=== PATIENT | male | born 1965 | race Caucasian/White ===

== ENCOUNTER 2022-05-25 21:35 | Observation (INO) | payer MEDICARE ==
[2022-05-25 22:43] LABS: #Eosinphils 0.1 10x3/uL (0.0-0.5); #Monocytes 0.5 10x3/uL (0.0-1.1); #Neutrophils 3.7 10x3/uL (1.5-8.4); %Basophils 0.3 % (0.0-2.0); %Eosinophils 1.2 % (0.0-6.0); %Lymphocytes 27.5 % (18.0-47.0); %Monocytes 7.9 % (0.0-10.0); %Neutrophils 62.9 % (40.0-75.0); Hemoglobin 17.7 g/dL (13.5-17.5); Mean Corpuscular HGB CONC 34.8 g/dL (32.0-36.0); Mean Corpuscular Hemoglobin 31.7 pg (27.0-33.0); Mean Corpuscular Volume 90.9 fl (81.2-95.1); Mean Platelet Volume 9.6 fl (7.4-10.4); Platelet Count 158 10x3/uL (150-450); RBC Distribution Width 12.8 % (11.5-14.5); Red Blood Cell (RBC) Count 5.59 10x6/uL (4.32-5.72); White Blood Cell (WBC) Count 5.8 10x3/uL (3.5-10.5)
[2022-05-25 22:59] LABS: ALT (SGPT) 26 U/L (8-55); AST (SGOT) 19 U/L (5-34); Albumin 4.2 g/dL (3.5-5.0); Alkaline Phosphatase 45 U/L (40-110); Anion Gap 15 mmol/L (10-20); BUN (Urea Nitrogen) 30 mg/dL (8.4-25.7); Bilirubin, Total 0.4 mg/dL (0.2-1.2); Calc. Creatinine Clearance 0 mL/min (70-130); Calcium 10.2 mg/dL (7.8-10.44); Carbon Dioxide 21 mmol/L (22-29); Chloride 112 mmol/L (98-107); Estimated GFR 42; Globulin 2.7 g/dL (2.4-3.5); Glucose 115 mg/dL (70-105); Potassium 3.7 mmol/L (3.5-5.1); Protein, Total 6.9 g/dL (6.0-8.3); Sodium 144 mmol/L (136-145)
[2022-05-26 00:32] LABS: Troponin I 0.055 ng/mL (< 0.028)
[2022-05-26] MEDS ORDERED: Ondansetron ODT 4 MG TAB PO PRN (00:34)
[2022-05-26] MEDS ORDERED: Senokot S 8.6-50 MG TAB PO PRN (00:34)
[2022-05-26] MEDS ORDERED: hydrALAZINE 25 MG TAB PO PRN ×2 (00:35→10:01)
[2022-05-26 00:56] VITALS: BMI 26.5
[2022-05-26] MEDS ORDERED: Tamsulosin HCl 0.4 MG CAP PO SCH ×3 (01:00→21:00)
[2022-05-26] MEDS ORDERED: Apixaban 5 MG TAB PO SCH (01:15)
[2022-05-26] MEDS: Acetaminophen 325 MG TAB PO PRN ×2 (01:20→21:03)
[2022-05-26 02:19] LABS: SARS-CoV-2 NAA Rapid Test Not Detected (NotDetected)
[2022-05-26 03:53] LABS: Anion Gap 17 mmol/L (10-20); BUN (Urea Nitrogen) 32 mg/dL (8.4-25.7); Calc. Creatinine Clearance 57 mL/min (70-130); Calcium 9.8 mg/dL (7.8-10.44); Carbon Dioxide 17 mmol/L (22-29); Cardiac Risk 2.8 (Less than 4.5); Chloride 113 mmol/L (98-107); Cholesterol 106 mg/dl (< 200 Desired); Estimated GFR 46; Glucose 91 mg/dL (70-105); HDL Cholesterol 38 mg/dL (>60 Neg Risk); LDL Cholesterol, Calculated 34 mg/dL; Potassium 4.5 mmol/L (3.5-5.1); Sodium 142 mmol/L (136-145); Triglycerides 171 mg/dL (Less than 150)
[2022-05-26 04:02] LABS: Troponin I 0.081 ng/mL (< 0.028)
[2022-05-26] MEDS ORDERED: Amlodipine 5 MG TAB PO SCH (09:00)
[2022-05-26] MEDS ORDERED: Famotidine 20 MG TAB PO SCH (09:00)
[2022-05-26] MEDS: Tamsulosin HCl 0.4 MG CAP PO SCH ×2 (09:48→21:02)
[2022-05-26] MEDS: Aspirin Chewable 81 MG TAB PO SCH (09:49)
[2022-05-26] MEDS: Polyethylene Glycol 3350 17 GM Packet PO SCH ×2 (09:49→21:03)
[2022-05-26] MEDS: Apixaban 5 MG TAB PO SCH ×2 (09:49→21:02)
[2022-05-26 11:41] LABS: #Eosinphils 0.1 10x3/uL (0.0-0.5); #Monocytes 0.4 10x3/uL (0.0-1.1); #Neutrophils 2.4 10x3/uL (1.5-8.4); %Basophils 0.8 % (0.0-2.0); %Eosinophils 1.2 % (0.0-6.0); %Lymphocytes 38.5 % (18.0-47.0); %Monocytes 8.5 % (0.0-10.0); %Neutrophils 50.8 % (40.0-75.0); Hemoglobin 17.6 g/dL (13.5-17.5); Mean Corpuscular HGB CONC 34.9 g/dL (32.0-36.0); Mean Corpuscular Hemoglobin 31.5 pg (27.0-33.0); Mean Corpuscular Volume 90.3 fl (81.2-95.1); Mean Platelet Volume 9.3 fl (7.4-10.4); Platelet Count 157 10x3/uL (150-450); RBC Distribution Width 12.7 % (11.5-14.5); Red Blood Cell (RBC) Count 5.59 10x6/uL (4.32-5.72); White Blood Cell (WBC) Count 4.8 10x3/uL (3.5-10.5)
[2022-05-26 11:56] LABS: Magnesium 2.3 mg/dL (1.6-2.6)
[2022-05-26] MEDS: Fentanyl 100 MCG/2 ML VIAL SLOW IVP PRN ×2 (11:59→21:15)
[2022-05-26 12:19] LABS: CKMB 2.6 ng/mL (0-6.6)
[2022-05-26] MEDS ORDERED: Fentanyl 100 MCG/2 ML VIAL SLOW IVP SCH (14:15)
[2022-05-26] MEDS ORDERED: Nitroglycerin 0.4 MG TAB (25 Tab Bottle) SL PRN (17:27)
[2022-05-26 20:38] LABS: CKMB 2.1 ng/mL (0-6.6)
[2022-05-26] MEDS: Atorvastatin Calcium 40 MG TAB PO SCH ×2 (21:02→21:05)
[2022-05-26] MEDS: Fish Oil 1,000 MG CAP PO SCH (21:03)
[2022-05-27 05:10] LABS: Anion Gap 13 mmol/L (10-20); BUN (Urea Nitrogen) 28 mg/dL (8.4-25.7); Calc. Creatinine Clearance 57 mL/min (70-130); Calcium 9.6 mg/dL (7.8-10.44); Carbon Dioxide 23 mmol/L (22-29); Chloride 107 mmol/L (98-107); Estimated GFR 46; Glucose 104 mg/dL (70-105); Sodium 139 mmol/L (136-145)
[2022-05-27 05:33] LABS: CKMB 2.2 ng/mL (0-6.6)
[2022-05-27] MEDS: Apixaban 5 MG TAB PO SCH (09:47)
[2022-05-27] MEDS: Tamsulosin HCl 0.4 MG CAP PO SCH (09:47)
[2022-05-27] MEDS: Polyethylene Glycol 3350 17 GM Packet PO SCH (09:47)
[2022-05-27] MEDS: Fish Oil 1,000 MG CAP PO SCH (09:47)
[2022-05-27] MEDS: Aspirin Chewable 81 MG TAB PO SCH (09:48)
[2022-05-27] MEDS: Acetaminophen 325 MG TAB PO PRN (09:48)
[2022-05-27 12:00] VITALS: BP 157/82; TEMP 98
== END 2022-05-27 12:03 | disposition home or self-care (01) ==
LOC: CSHERS 21:35 → CSHTELE 05-26 00:50
PROVIDERS: ADMIT Student in an Organized Health Care Education/Training Program; ATTEND Internal Medicine
DX: R07.2 Precordial pain (principal); R00.2 Palpitations; I25.10 Atherosclerotic heart disease of native coronary artery without angina pectoris; I12.9 Hypertensive chronic kidney disease with stage 1 through stage 4 chronic kidney disease, or unspecified chronic kidney disease; N18.30 Chronic kidney disease, stage 3 unspecified; K21.9 Gastro-esophageal reflux disease without esophagitis; E03.9 Hypothyroidism, unspecified; N40.0 Benign prostatic hyperplasia without lower urinary tract symptoms; F17.220 Nicotine dependence, chewing tobacco, uncomplicated; I48.0 Paroxysmal atrial fibrillation; Q60.0 Renal agenesis, unilateral; Z20.822 Contact with and (suspected) exposure to COVID-19; Z95.1 Presence of aortocoronary bypass graft; Z79.82 Long term (current) use of aspirin; Z79.01 Long term (current) use of anticoagulants; Z79.899 Other long term (current) drug therapy; Z88.5 Allergy status to narcotic agent; Z88.2 Allergy status to sulfonamides
CPT/HCPCS: 71045; 80048 ×2; 80053; 80061; 82553 ×3; 83735; 84484 ×4; 85025 ×2; 93005 ×3; 96374; 96376; 99285; G0378 ×2; U0002; 36415; 93010; J3010